=== PATIENT | male | born 1975 | race Caucasian/White ===

== ENCOUNTER 2022-06-27 15:31 | Emergency (ER) | payer MEDICAID, SELFPAY ==
[2022-06-27 15:49] VITALS: BP 138/85; PULSE 95; RESP 20; TEMP 36.8; O2SAT 97
--- NOTE | 2022-06-27 16:48 | ED.GENADUL_ITS ---
Discharge Plan Disposition Patient Disposition: HOME Condition: Improving Discharge Details Clinical Impression: Bipolar disorder Primary Care Provider: Laura Aguilera ED Provider: Heri Mckeon Home Meds and New Rx's Prescriptions: Continued trazodone 50 mg Tablet 50 mg PO DAILY divalproex 250 mg Tablet Extended Release 24 Hr 500 mg PO HS Discharge Instructions Additional Instructions: You were evaluated by the on-call mental health crisis team. They will call you on Thursday for further outpatient care. Return to the ER for any acute concerns. Continue your routine medications. Continue your positive efforts at self-care including avoiding alcohol. Medical Decision Making This is a 46-year-old male who states she has had a history of bipolar disorder since his early 20s. He used to be on lithium currently taking Depakote and trazodone at night. He states over the past few weeks has had increased baltazar with poor sleep and flight of ideas. He feels this peaked last Thursday when he spent 2 days home alone and did feel depressed, reaching out to family members. He is here tonight with his sister, stating he is feeling improved but feeling the need for reconnecting with therapy as he had good success prior to COVID with a therapist. He is not currently having thoughts of harming himself or others. Medical screening examination performed patient medically stable for further evaluation by mental health dry house worker. Following interview, patient has established plan of outpatient care and safety. He will be contacted on Thursday for a follow-up appointment. He is stable and improved. HPI General Mode of arrival: ambulatory . Date/Time Provider Initiated Documentation: 06/27/22 16:05 . Limitations to Documentation: no limitations . Information obtained by: patient . History of Present Illness 46 year old M presents to the emergency department with the chief complaint of Manic episode, described as mild and similar to prior episodes, Patient started experiencing this day(s) and it has been other (Improved). No relieving factors improve symptom(s), Patient notes no other symptoms.. Patient did receive the following treatments prior to arrival, none Related Data Home Medications Medication Instructions Recorded Confirmed divalproex 250 mg tablet,extended 500 mg PO HS 06/27/22 06/27/22 release 24 hr trazodone 50 mg tablet 50 mg PO DAILY 06/27/22 06/27/22 Allergies Allergy/AdvReac Type Severity Reaction Status Date / Time No Known Allergies Allergy Unverified 06/27/22 15:55 General Stated Complaint: PsychEval JOSE: 2 Review of Systems Narrative: No recent illness PFSH All Active Problems (Updated 06/27/22 @ 17:52 by Heri Mckeon MD) Bipolar disorder (Acute) Social History Smoking/Tobacco Use Status: Never Smoking risk assessment performed?: Yes Alcohol Intake: current Alcohol Intake frequency: a few times a month Drug use: Never Substance use type: does not use Do you feel safe at home: Yes Do you feel safe in your relationship?: Yes Exam Narrative Exam Narrative: GEN: awake, alert, oriented 3. Pleasant, well groomed, interactive. HEAD: Normocephalic, atraumatic ENT: Mucous membranes moist, oropharynx unremarkable, External ear exam unremarkable EYES: PERRL, EOMI NECK: Full ROM, no ANTONIA, no menigismus CHEST/RESP: Nontender, clear to auscultation bilateral, no wheeze/rhonchi/rales CARDIOVASCULAR: RRR, no murmur, rub hannah. 2+ Rad pulse bilateral ABDOMEN: Soft, nontender, no mass. +Bowel sounds EXT: Full ROM, no edema, no rash Neuro: Grossly normal neurologic exam, conversant, interactive. Psych: Speech fluent, thoughts congruent, affect normal Course Vital Signs Vital signs: Vital Signs Temperature 36.8 C 06/27/22 15:49 Pulse 95 H 06/27/22 15:49 Respiratory Rate 20 06/27/22 15:49 Blood Pressure 138/85 06/27/22 15:49 Pulse Oximetry 97 06/27/22 15:49 Temperature 36.8 C 06/27/22 15:49 Temperature Source Temporal Artery Scan 06/27/22 15:49 Pulse 95 H 06/27/22 15:49 Respiratory Rate 20 06/27/22 15:49 Respiratory Effort Non-Labored 06/27/22 15:57 Blood Pressure 138/85 06/27/22 15:49 Blood Pressure Position Sitting 06/27/22 15:49 Pulse Oximetry 97 06/27/22 15:49 Oxygen Delivery Method Room Air 06/27/22 15:49 Oxygen Flow Rate 0 06/27/22 15:49 Pain Level 0 06/27/22 15:49
[2022-06-27 18:10] VITALS: BP 130/80; PULSE 88; RESP 14; O2SAT 98
== END 2022-06-27 18:09 | disposition home or self-care (01) ==
PROVIDERS: Emergency Provider Emergency Medicine; PCP Nurse Practitioner Family
DX: F31.9 Bipolar disorder, unspecified (principal)
CPT/HCPCS: 99282

== ENCOUNTER 2023-04-27 14:37 | Emergency (ER) | payer MEDICAID, SELFPAY ==
[2023-04-27 14:44] VITALS: PULSE 164; RESP 16; TEMP 37.6; O2SAT 95
--- NOTE | 2023-04-27 15:06 | ED.GENADUL_ITS ---
Discharge Plan Discharge Details Chief Complaint: ETOHWithdr Clinical Impression: Alcohol intoxication, Aggressive behavior Primary Care Provider: None,None ED Provider: Geovani Harris Home Meds and New Rx's Prescriptions: No Action trazodone 50 mg Tablet 50 mg PO DAILY divalproex 250 mg Tablet Extended Release 24 Hr 500 mg PO TID cyclobenzaprine 10 mg Tablet 10 mg PO TID PRN quetiapine 200 mg Tablet 200 mg PO QHS Medical Decision Making 47 yo male with hx of bipolar and alcohol abuse comes in with his sister with alcohol intoxicated. Reportedly has been drinking whiskey most of the day. Patient arrives alert and screams when I enter the room. When I ask why he is here he yells fuck you and intermittently makes comments such as just fucking kill me. He has no signs of trauma, is not cooperative on exam and makes threats of self harm. HE is a danger to self and others and feel he needs chemical restraint for his safety and safety of others. Nursing was able to place an IV so 5mg haldol, 2mg ativan and 50mg benadryl ordered and will obtain cbc, cmp, tox screen and reassess. pt now sleeping after being medicated, withdraws extremities to painful stimuli and will say go away intermittently, will continue to monitor. pt now sleeping and awakens to voice, no longer agitated and cooperative, still slurring words, will follow commands now no focal deficits, will recheck bmp given anion gap acidosis which I suspect is due to alcoholic ketoacidosis, HR now 110 in sinus on the tele monitor. pt stable, sleeping in no distress awakens to voice but still slurring words, will not be able to be screened until the morning. Will be signed out to onco alexis provider pending sobriety and eval when sober. Differential Diagnosis Differential Diagnosis: alcohol intoxication, bipolar Lab Data Lab results reviewed: Yes I reviewed the patient's lab results. HPI General Mode of arrival: ambulatory . Date/Time Provider Initiated Documentation: 04/27/23 14:51 . Limitations to Documentation: other (intoxicated) . Information obtained by: patient and family . History of Present Illness 47 year old M presents to the emergency department with the chief complaint of alcohol intoxication, Patient started experiencing this unknown and it has been constant. No relieving factors improve symptom(s), No exacerbating factors reported . Patient did receive the following treatments prior to arrival, none Related Data Home Medications Medication Instructions Recorded Confirmed divalproex 250 mg tablet,extended 500 mg PO TID 06/27/22 04/27/23 release 24 hr trazodone 50 mg tablet 50 mg PO DAILY 06/27/22 04/27/23 cyclobenzaprine 10 mg tablet 10 mg PO TID PRN 04/27/23 04/27/23 quetiapine 200 mg tablet 200 mg PO QHS 04/27/23 04/27/23 Allergies Allergy/AdvReac Type Severity Reaction Status Date / Time No Known Allergies Allergy Unverified 06/27/22 15:55 General Stated Complaint: ETOHWithdr JOSE: 2 Review of Systems Unobtainable due to mental status (agitated/non cooperative) PFSH All Active Problems (Updated 04/27/23 @ 20:46 by Geovani Harris MD) Alcohol intoxication (Acute) Aggressive behavior (Acute) Social History Smoking/Tobacco Use Status: Never Smoking risk assessment performed?: Yes Alcohol Intake: current Alcohol Intake frequency: a few times a month Drug use: Never Substance use type: does not use Do you feel safe at home: Yes Do you feel safe in your relationship?: Yes Exam Const Orientation: alert HENGA Head: normal to inspection Ears: external ears normal General nose exam: external nose normal Mouth: moist mucous membranes Eyes General: appearance normal, both eyes and all related structures Neck Neck: normal visual inspection Resp Effort & Inspection: normal respiratory effort and able to speak in complete sentences Skin General skin exam: no rashes or lesions noted Neuro General: patient alert Extrem General: normal to inspection Psych Appearance: disheveled Attitude: belligerent Course Vital Signs Vital signs: Vital Signs Temperature 37.6 C H 04/27/23 14:44 Pulse 164 H 04/27/23 14:44 Respiratory Rate 16 04/27/23 14:44 Pulse Oximetry 95 04/27/23 14:44 Temperature 37.6 C H 04/27/23 14:44 Temperature Source Temporal Artery Scan 04/27/23 14:44 Pulse 164 H 04/27/23 14:44 Respiratory Rate 16 04/27/23 14:44 Blood Pressure Position Sitting 04/27/23 14:44 Pulse Oximetry 95 04/27/23 14:44 Oxygen Delivery Method Room Air 04/27/23 14:44 Oxygen Flow Rate 0 04/27/23 14:44 Pain Level 0 04/27/23 14:44
[2023-04-27 15:21] LABS: Abs Immature Grans 0.05 10^3/uL (0.0-0.06); Absolute Eosinophil Count 0.13 10^3/uL (0.0-0.7); Absolute Lymphocyte Count 5.95 10^3/uL (1.2-3.4); Basophils % 0.9; Eosinophils % 1.1; HCT 52.2 % (40.0-50.0); HGB 18.4 g/dL (13.5-17.5); Immature Grans % 0.4; Lymphocytes % 51.3; MCH 32.3 pg (27.0-33.0); MCHC 35.2 % (32.0-36.0); MCV 92 fL (80-95); MPV 10.1 fL (8.0-11.0); Monocytes % 4.7; Neutrophils % 41.6; Platelet Count 389 10^3/uL (130-400); RBC 5.69 10^6/uL (4.36-5.78); RDW 13.2 % (11.8-14.1); RDW-SD 44.7 fL; WBC 11.59 10^3/uL (4.4-10.8)
[2023-04-27 15:24] LABS: Absolute Monocyte Count 0.54 10^3/uL (0.1-0.8); Absolute Neutrophil Count 4.82 10^3/uL (1.2-6.7)
[2023-04-27] MEDS: diphenhydrAMINE 50 MG/ML VIAL IVP (15:29)
[2023-04-27] MEDS: Haloperidol 5 MG/ML VIAL IM/IV (15:29)
[2023-04-27] MEDS: LORazepam 2 MG/ML VIAL IVP (15:29)
[2023-04-27] MEDS: Normal Saline 1,000 ML 1000 ML IV ×2 (15:29→16:56)
[2023-04-27 15:35] LABS: INR 0.9 (0.9-1.1); PTT Activated 25.8 sec (21.5-31.9); Prothrombin Time 9.5 sec (9.3-11.0)
[2023-04-27 15:42] LABS: VALPROIC ACID 7.3 ug/mL
[2023-04-27 15:46] LABS: Diff Comment Diff Reviewed; RBC Morphology Normal
[2023-04-27 15:51] LABS: ALT 25 U/L (16-63); AST 19 U/L (15-37); Albumin 4.1 g/dL (3.4-5.0); Alkaline Phosphatase 104 U/L (46-116); Anion Gap 16.8 mmol/L (3-11); BUN 20 mg/dL (7-18); Bilirubin, Total 0.3 mg/dL (0.2-1.0); CO2 22.2 mmol/L (21.0-32.0); Calcium 8.8 mg/dL (8.5-10.1); Chloride 107 mmol/L (98-107); ETHANOL BLOOD 436.2 mg/dL (<10); Estimated GFR 92.26 (mL/min/1.73m2); Glucose 129 mg/dL (74-106); Magnesium 2.1 mg/dL (1.8-2.4); Potassium 4.1 mmol/L (3.5-5.1); Sodium 146 mmol/L (136-145); TSH (W/Ref FT4) 1.56 uIU/mL (0.36-3.74); Total Protein 8.9 g/dL (6.4-8.2)
[2023-04-27 15:55] LABS: Acetaminophen < 2 ug/mL (10-30); Salicylate 2.8 mg/dL (<2.8)
[2023-04-27 18:20] LABS: Anion Gap 11.2 mmol/L (3-11); BUN 19 mg/dL (7-18); CO2 26.8 mmol/L (21.0-32.0); Calcium 7.4 mg/dL (8.5-10.1); Chloride 110 mmol/L (98-107); Estimated GFR 92.26 (mL/min/1.73m2); Glucose 90 mg/dL (74-106); Potassium 3.8 mmol/L (3.5-5.1); Sodium 148 mmol/L (136-145)
[2023-04-27 20:32] VITALS: BP 100/62; PULSE 112; RESP 14; O2SAT 93
[2023-04-28 02:40] LABS: Bilirubin Negative (Negative); Blood Negative (Negative); Clarity Sl Cloudy (Clear); Glucose Negative (Negative); Ketones 15 mg/dL (Negative); Leukocyte Esterase Negative (Negative); Nitrite Negative (Negative); Specific Gravity >= 1.030 (1.005-1.025); Urobilinogen 0.2 mg/dL (Up to 0.2); pH 5.5 (5-8)
[2023-04-28 02:49] LABS: Bacteria Rare HPF (Negative); Crystals Negative HPF (Negative); Epithelial Cells Rare HPF (Negative); Mucus Trace (Negative); RBC 0-2 HPF (0-2); WBC 0-2 HPF (0-5)
[2023-04-28 02:50] LABS: C & S Indicated? No; Casts 3-5 Hyaline LPF (Negative)
[2023-04-28 02:52] LABS: *AMPHETAMINES SCREEN URINE Negative (Negative); *BARBITURATES SCREEN URINE Negative (Negative); *BENZODIAZEPINES SCREEN URINE Negative (Negative); Cannabinoids THC Negative (Negative); Cocaine Screen,Urine Negative (Negative); METHADONE URINE SCREEN Negative (Negative); OPIATES URINE SCREEN Negative (Negative)
[2023-04-28 02:53] LABS: Tricyclic Antidepressants Positive (Negative)
--- NOTE | 2023-04-28 06:35 | ED.PROG_ITS ---
Date of service: 04/28/23 Time of Service: 06:35 Medical Decision Making Resting comfortably no acute distress alert oriented. Clinically sober. No evidence of sedation or withdrawal. Patient has no SI or HI. Feels safe going home. Will be given [facility] human services resources for substance abuse Sign Out Sign Out Data: Sign Out Comment: intoxicated and aggressive on arrival making statements of self harm, requiring chemical sedation, now calm but still intoxicated, alcohol level 436, likely won't be sober enough to be screened until the morning Last updated by Geovani Harris MD at 04/27/23 22:14 Discharge Plan Disposition Patient Disposition: Home Discharge Details Chief Complaint: ETOHWithdr Clinical Impression: Alcohol intoxication Primary Care Provider: None,None ED Provider: Germain Valdes Home Meds and New Rx's Prescriptions: No Action trazodone 50 mg Tablet 50 mg PO DAILY divalproex 250 mg Tablet Extended Release 24 Hr 500 mg PO TID cyclobenzaprine 10 mg Tablet 10 mg PO TID PRN quetiapine 200 mg Tablet 200 mg PO QHS Discharge Instructions Instructions: Alcohol Intoxication (ED)
[2023-04-28 07:11] VITALS: BP 134/80; PULSE 80; RESP 20; TEMP 36.8; O2SAT 97
== END 2023-04-28 07:02 | disposition home or self-care (01) ==
PROVIDERS: Emergency Medicine; Emergency Provider Emergency Medicine
DX: F10.929 Alcohol use, unspecified with intoxication, unspecified (principal); F31.9 Bipolar disorder, unspecified
CPT/HCPCS: 80048; 80053; 80307; 96361; 96372; 96374; 96375; 99284; 80164; 80320; 80329; 81003; 81015; 83735; 84443; 85025; 85610; 85730; J1200; J1630; J2060

== ENCOUNTER 2023-06-23 16:25 | Emergency (ER) | payer MEDICAID, SELFPAY ==
[2023-06-23 16:28] VITALS: BP 127/105; PULSE 140; RESP 20; TEMP 37.5; O2SAT 99
--- NOTE | 2023-06-23 16:41 | W.ED.GENAD ---
Discharge Plan Disposition Patient Disposition: Home Condition: Stable Discharge Details Clinical Impression: Alcohol intoxication, Manic behavior Primary Care Provider: Unknown,Unknown ED Provider: Vandana Maxwell Home Meds and New Rx's Prescriptions: Continued trazodone 50 mg Tablet 50 mg PO DAILY divalproex 250 mg Tablet Extended Release 24 Hr 500 mg PO TID cyclobenzaprine 10 mg Tablet 10 mg PO TID PRN quetiapine 200 mg Tablet 200 mg PO QHS Discharge Instructions Instructions: Bipolar Disorder (ED), Alcohol Intoxication (ED) Additional Instructions: Please follow-up as discussed in by [facility] [email or web address]. Please return to the ER for any thoughts of harming yourself or others. Please take your regularly prescribed medications as directed. Follow up with primary care provider in 3-5 days. Return to ED sooner if any worsening or concerns. Increase oral fluids. Stand Alone Forms: Work Release Referrals: [facility] [Outside] - 2 days (Call for help with Alcohol use) [facility] [Outside] - 1 day Medical Decision Making 47 year old male presents accompanied by his sister for psychiatric eval. patient has a history of bipolar and his sister reports that he has not slept for the last for 5 days he has not taken his normal medications today. He reported to the triage nurse that he wants to hurt some people. He does report drinking alcohol today. He appears very agitated upon arrival. Guarded avoids eye contact. Patient is tachycardic and hypertensive. Work-up ordered including IV normal saline and lorazepam. BC CMP Tylenol salicylate urine drug screen and alcohol level ordered. Mental health eval and sitter. Ethyl alcohol level 310, has been drinking water and has recieved one liter of NS. Has remained calm and cooperative throughout his stay. 2206:Repeat ETOH level ordered. 2235: Mental health paged. 2248: Freida from [facility] on Zoom for evaluation. 2308: Spoke with Melanie with [facility] she recommends a safety plan home tonight he will check in daily with phone calls discussed with his boss and his medication provider about changing his medications and make a decision to possibly go inpatient in the future. I agree with his plan as patient denies any suicidal ideation at this time. Staff will call patients family for a ride. Vital signs improved prior to discharge. Medical Records Medical records reviewed: Yes I reviewed the patient's medical records. Lab Data Lab results reviewed: Yes I reviewed the patient's lab results. Labs: Laboratory Tests Range/Units 06/23/23 06/23/23 06/23/23 16:50 16:50 16:50 WBC (4.4-10.8) 10^3/uL 9.72 RBC (4.36-5.78) 10^6/uL 5.41 Hgb (13.5-17.5) g/dL 17.2 Hct (40.0-50.0) % 50.2 H MCV (80-95) fL 93 MCH (27.0-33.0) pg 31.8 MCHC (32.0-36.0) % 34.3 RDW (11.8-14.1) % 14.7 H Plt Count (130-400) 10^3/uL 353 MPV (8.0-11.0) fL 10.2 Immature Gran % 0.6 Neutrophils % 52.9 Lymphocytes % 40.0 Monocytes % 5.1 Eosinophils % 0.6 Basophils % 0.8 Nucleated RBC % (0.0-0.3) % 0.0 Absolute Neutrophils (1.2-6.7) 10^3/uL 5.13 Absolute Lymphocytes (1.2-3.4) 10^3/uL 3.89 H Absolute Monocytes (0.1-0.8) 10^3/uL 0.50 Absolute Eosinophils (0.0-0.7) 10^3/uL 0.06 Absolute Basophils (0.0-0.2) 10^3/uL 0.08 Sodium (136-145) mmol/L 143 Potassium (3.5-5.1) mmol/L 3.7 Chloride (98-107) mmol/L 104 Carbon Dioxide (21.0-32.0) mmol/L 18.6 L Anion Gap (3-11) mmol/L 20.4 H BUN (7-18) mg/dL 17 Creatinine (0.70-1.30) mg/dL 0.9 Est GFR (CKD-EPI 2020) (mL/min/1.73m2) 104.70 Glucose (74-106) mg/dL 101 Calcium (8.5-10.1) mg/dL 9.0 Total Bilirubin (0.2-1.0) mg/dL 0.3 AST (15-37) U/L 19 ALT (16-63) U/L 27 Alkaline Phosphatase (46-116) U/L 95 Total Protein (6.4-8.2) g/dL 8.9 H Albumin (3.4-5.0) g/dL 4.0 TSH (0.36-3.74) uIU/mL 1.78 Urine Color (Yellow) Urine Clarity (Clear) Urine pH (5-8) Ur Specific [place] (1.005-1.025) Urine Protein (Negative) mg/dL Urine Ketones (Negative) mg/dL Urine Blood (Negative) Urine Nitrite (Negative) Urine Bilirubin (Negative) Urine Urobilinogen (Up to 0.2) mg/dL Ur Leukocyte Esterase (Negative) Urine RBC (0-2) HPF Urine WBC (0-5) HPF Ur Epithelial Cells (Negative) HPF Urine Crystals (Negative) HPF Urine Bacteria (Negative) HPF Urine Casts (Negative) LPF Urine Mucus (Negative) Ur Culture Indicated? Urine Glucose (Negative) mg/dL Salicylates (<2.8) mg/dL < 2.8 Urine Opiates Screen (Negative) Urine Methadone Screen (Negative) Acetaminophen (10-30) ug/mL < 2 Ur Barbiturates Screen (Negative) Ur Tricyclics Screen (Negative) Ur Amphetamines Screen (Negative) U Benzodiazepines Scrn (Negative) Urine Cocaine Screen (Negative) Ur THC Screen (Negative) Ethyl Alcohol (<10) mg/dL 310.3 H Range/Units 06/23/23 06/23/23 20:40 20:40 WBC (4.4-10.8) 10^3/uL RBC (4.36-5.78) 10^6/uL Hgb (13.5-17.5) g/dL Hct (40.0-50.0) % MCV (80-95) fL MCH (27.0-33.0) pg MCHC (32.0-36.0) % RDW (11.8-14.1) % Plt Count (130-400) 10^3/uL MPV (8.0-11.0) fL Immature Gran % Neutrophils % Lymphocytes % Monocytes % Eosinophils % Basophils % Nucleated RBC % (0.0-0.3) % Absolute Neutrophils (1.2-6.7) 10^3/uL Absolute Lymphocytes (1.2-3.4) 10^3/uL Absolute Monocytes (0.1-0.8) 10^3/uL Absolute Eosinophils (0.0-0.7) 10^3/uL Absolute Basophils (0.0-0.2) 10^3/uL Sodium (136-145) mmol/L Potassium (3.5-5.1) mmol/L Chloride (98-107) mmol/L Carbon Dioxide (21.0-32.0) mmol/L Anion Gap (3-11) mmol/L BUN (7-18) mg/dL Creatinine (0.70-1.30) mg/dL Est GFR (CKD-EPI 2020) (mL/min/1.73m2) Glucose (74-106) mg/dL Calcium (8.5-10.1) mg/dL Total Bilirubin (0.2-1.0) mg/dL AST (15-37) U/L ALT (16-63) U/L Alkaline Phosphatase (46-116) U/L Total Protein (6.4-8.2) g/dL Albumin (3.4-5.0) g/dL TSH (0.36-3.74) uIU/mL Urine Color (Yellow) Yellow Urine Clarity (Clear) Clear Urine pH (5-8) 5.5 Ur Specific [place] (1.005-1.025) >= 1.030 H Urine Protein (Negative) mg/dL Trace H Urine Ketones (Negative) mg/dL 15 H Urine Blood (Negative) Trace-intact H Urine Nitrite (Negative) Negative Urine Bilirubin (Negative) Negative Urine Urobilinogen (Up to 0.2) mg/dL 0.2 Ur Leukocyte Esterase (Negative) Negative Urine RBC (0-2) HPF 0-2 Urine WBC (0-5) HPF 0-2 Ur Epithelial Cells (Negative) HPF Rare Urine Crystals (Negative) HPF Negative Urine Bacteria (Negative) HPF Negative Urine Casts (Negative) LPF 3-5 Hyaline Urine Mucus (Negative) Trace Ur Culture Indicated? No Urine Glucose (Negative) mg/dL Negative Salicylates (<2.8) mg/dL Urine Opiates Screen (Negative) Negative Urine Methadone Screen (Negative) Negative Acetaminophen (10-30) ug/mL Ur Barbiturates Screen (Negative) Negative Ur Tricyclics Screen (Negative) Positive A Ur Amphetamines Screen (Negative) Negative U Benzodiazepines Scrn (Negative) Negative Urine Cocaine Screen (Negative) Negative Ur THC Screen (Negative) Negative Ethyl Alcohol (<10) mg/dL HPI General Mode of arrival: ambulatory. Date/Time Provider Initiated Documentation: 06/23/23 16:33. Limitations to Documentation: altered mental status. Information obtained by: patient, family, RN notes reviewed and old records reviewed. HPI Narrative: 47 year old male presents accompanied by his sister for psychiatric eval. patient has a history of bipolar and his sister reports that he has not slept for the last for 5 days he has not taken his normal medications today. He reported to the triage nurse that he wants to hurt some people. He does report drinking alcohol today. He appears very agitated upon arrival. Guarded avoids eye contact. Related Data Home Medications Medication Instructions Recorded Confirmed divalproex 250 mg tablet,extended 500 mg PO TID 06/27/22 06/23/23 release 24 hr trazodone 50 mg tablet 50 mg PO DAILY 06/27/22 06/23/23 cyclobenzaprine 10 mg tablet 10 mg PO TID PRN 04/27/23 06/23/23 quetiapine 200 mg tablet 200 mg PO QHS 04/27/23 06/23/23 Allergies Allergy/AdvReac Type Severity Reaction Status Date / Time No Known Allergies Allergy Unverified 06/27/22 15:55 General Stated Complaint: PsychEval JOSE: 2 Review of Systems All systems reviewed & are unremarkable except as noted in HPI and below Psychiatric Psychiatric: Reports as per HPI, Reports depression, Reports mood swings and Reports homicidal ideation PFSH All Active Problems (Updated 06/23/23 @ 23:12 by Vandana Maxwell NP) Alcohol intoxication (Acute) Manic behavior (Acute) Social History Smoking/Tobacco Use Status: Never Smoking risk assessment performed?: Yes Alcohol Intake: current Alcohol Intake frequency: a few times a month Drug use: Never Substance use type: does not use Housing: house Do you feel safe at home: Yes Do you feel safe in your relationship?: Yes Course Vital Signs Vital signs: Vital Signs Temperature 37.5 C 06/23/23 16:28 Pulse 140 H 06/23/23 16:28 Respiratory Rate 20 06/23/23 16:28 Blood Pressure 127/105 H 06/23/23 16:28 Pulse Oximetry 99 06/23/23 16:28 Temperature 37.5 C 06/23/23 16:28 Temperature Source Oral 06/23/23 16:28 Pulse 140 H 06/23/23 16:28 Respiratory Rate 20 06/23/23 16:28 Blood Pressure 127/105 H 06/23/23 16:28 Blood Pressure Position Supine 06/23/23 16:28 Pulse Oximetry 99 06/23/23 16:28 Oxygen Delivery Method Room Air 06/23/23 16:28 Oxygen Flow Rate 0 06/23/23 16:28 Pain Level 0 06/23/23 16:28
[2023-06-23] MEDS: LORazepam 2 MG/ML VIAL IVP (16:54)
[2023-06-23] MEDS: Normal Saline 1,000 ML 1000 ML IV (16:54)
[2023-06-23 17:04] LABS: Abs Immature Grans 0.06 10^3/uL (0.0-0.06); Absolute Basophil Count 0.08 10^3/uL (0.0-0.2); Absolute Eosinophil Count 0.06 10^3/uL (0.0-0.7); Absolute Lymphocyte Count 3.89 10^3/uL (1.2-3.4); Absolute Neutrophil Count 5.13 10^3/uL (1.2-6.7); Basophils % 0.8; Eosinophils % 0.6; HCT 50.2 % (40.0-50.0); HGB 17.2 g/dL (13.5-17.5); Immature Grans % 0.6; MCH 31.8 pg (27.0-33.0); MCHC 34.3 % (32.0-36.0); MCV 93 fL (80-95); MPV 10.2 fL (8.0-11.0); Monocytes % 5.1; Neutrophils % 52.9; Platelet Count 353 10^3/uL (130-400); RBC 5.41 10^6/uL (4.36-5.78); RDW 14.7 % (11.8-14.1); RDW-SD 50.7 fL; WBC 9.72 10^3/uL (4.4-10.8)
[2023-06-23 17:23] LABS: ALT 27 U/L (16-63); AST 19 U/L (15-37); Alkaline Phosphatase 95 U/L (46-116); Anion Gap 20.4 mmol/L (3-11); BUN 17 mg/dL (7-18); Bilirubin, Total 0.3 mg/dL (0.2-1.0); CO2 18.6 mmol/L (21.0-32.0); CREATININE 0.9 mg/dL (0.70-1.30); Chloride 104 mmol/L (98-107); Glucose 101 mg/dL (74-106); Potassium 3.7 mmol/L (3.5-5.1); Sodium 143 mmol/L (136-145); TSH (W/Ref FT4) 1.78 uIU/mL (0.36-3.74); Total Protein 8.9 g/dL (6.4-8.2)
[2023-06-23 17:26] LABS: ETHANOL BLOOD 310.3 mg/dL (<10)
[2023-06-23 17:35] LABS: Salicylate < 2.8 mg/dL (<2.8)
[2023-06-23 17:36] LABS: Acetaminophen < 2 ug/mL (10-30)
[2023-06-23 20:24] VITALS: BP 129/95; PULSE 129; TEMP 37.2; O2SAT 90
[2023-06-23 21:03] LABS: Bilirubin Negative (Negative); Blood Trace-intact (Negative); Clarity Clear (Clear); Glucose Negative (Negative); Ketones 15 mg/dL (Negative); Leukocyte Esterase Negative (Negative); Nitrite Negative (Negative); Specific Gravity >= 1.030 (1.005-1.025); Urobilinogen 0.2 mg/dL (Up to 0.2); pH 5.5 (5-8)
[2023-06-23 21:13] LABS: *AMPHETAMINES SCREEN URINE Negative (Negative); *BARBITURATES SCREEN URINE Negative (Negative); *BENZODIAZEPINES SCREEN URINE Negative (Negative); Bacteria Negative HPF (Negative); Cannabinoids THC Negative (Negative); Cocaine Screen,Urine Negative (Negative); Crystals Negative HPF (Negative); Epithelial Cells Rare HPF (Negative); METHADONE URINE SCREEN Negative (Negative); OPIATES URINE SCREEN Negative (Negative); RBC 0-2 HPF (0-2); WBC 0-2 HPF (0-5)
[2023-06-23 21:14] LABS: C & S Indicated? No; Casts 3-5 Hyaline LPF (Negative); Mucus Trace (Negative)
[2023-06-23 21:26] LABS: Tricyclic Antidepressants Positive (Negative)
[2023-06-23 22:25] LABS: ETHANOL BLOOD 124.4 mg/dL (<10)
[2023-06-23 23:20] VITALS: BP 122/97; PULSE 109; TEMP 37.2; O2SAT 93
[2023-06-24 03:44] VITALS: BP 122/97; PULSE 109; RESP 20; TEMP 37.2; O2SAT 93
== END 2023-06-24 02:08 | disposition home or self-care (01) ==
PROVIDERS: Emergency Provider Registered Nurse Emergency
DX: F30.10 Manic episode without psychotic symptoms, unspecified (principal); R45.1 Restlessness and agitation; F10.120 Alcohol abuse with intoxication, uncomplicated; Y90.8 Blood alcohol level of 240 mg/100 ml or more
CPT/HCPCS: 80053; 80307; 96361; 96374; 99285; 80320; 80329; 81003; 81015; 84443; 85025; 99284; J2060

== ENCOUNTER 2023-12-16 13:49 | Outpatient (CLI) | payer MEDICAID, SELFPAY ==
--- NOTE | 2023-12-16 06:00 | DI.RAD_ITS ---
Exam(s) XR PAIN CLINIC LUMBAR SP 2V EXAM: XR PAIN CLINIC LUMBAR SP 2V CLINICAL HISTORY: Dx: Lumbar Spondylosis TECHNIQUE: 2D and realtime digital imaging was performed. CONTRAST MATERIAL: Refer to procedure report. COMPARISON: No exams were available for comparison FINDINGS: Fluoroscopy was provided for Dr. Zarate during the performance of a lumbar medial branch block. Sheri boyer refer to the procedure report for complete details. Ka,r=27.8 mGy IMPRESSION: RADIATION DOSE DELIVERED: 0.0 0.0 0
[2023-12-16 14:02] VITALS: BP 143/93; PULSE 88; RESP 20; TEMP 36.7; O2SAT 95
--- NOTE | 2023-12-16 14:39 | PDOC.PAIN ---
Date of service: 12/16/23 Time of Service: 14:39 Pain Managment Procedure Note Procedure Note Procedure Note: PROCEDURE NOTE Bilateral Lumbar Medial Branch Blocks Date of Service: December 16, 2023 Patient: Christopher Salazar Provider: Minna Zarate DO, MPH Celine Salazar has been referred to the [facility] for lumbar medial branch blocks. Pre-operative diagnosis: Lumbar Spondylosis without Myelopathy Post-operative diagnosis: Same Pre-procedure pain: VAS= 5/10 COMMENTS: I previously evaluated him in the office. His symptoms are the same as they were when I saw him in the office. Mary was interviewed and the medical records were reviewed. There were no medical, pharmacologic, radiographic or other structural contraindications to attempting fluoroscopically guided local anesthetic lumbar medial branch blocks. Risks and potential side effects were discussed. I also discussed the potential benefit(s) of the procedure with , and voiced concerns were addressed. After was completely informed about the procedure, the printed consent form was signed. A standard time-out procedure was performed. was placed in the prone position on the fluoroscopy table. Automated blood pressure cuff and pulse oximeter were applied. The skin entry points for approaching the anatomic target points of the segmental medial branches of bilateral L3,L4,L5 were identified with fluoroscopy and marked. The skin at the target site area was thoroughly prepared with Chlorhexadine. The skin was then draped. Next, a 25 gauge 3.5 spinal needle was placed under fluoroscopic guidance down on to the target point (the articular pillar) for each respective segmental medial branch. Position was confirmed in A/P and lateral views. Aspiration revealed no blood or clear fluid. Next, 0.25ml of omnipaque 240 was injected at each level. No contrast following a vascular or neural pattern was visualized under continuous fluoroscopy. Next, 0.25 ml of preservative-free 0.5% bupivicaine was injected at each level. There was no unusual discomfort expressed by . The needles were withdrawn without difficulty. (49 mls of Omnipaque was wasted) was observed and was without hemodynamic, neurologic, or allergic reactions.? Fluoroscopic images were digitally archived. Provacative testing using the Modified Christy's facet loading test- Left side Right Side Directly before the block VAS (0-10) = 6/10 VAS (0-10) = 6/10 Five minutes after the block VAS (0-10) = 1/10 VAS (0-10) = 1/10 Percentage relief obtained with this diagnostic block 85% 85% Any improved physical functioning directly after the blocks? Able to move without much pain. Follow up plans and appointments were discussed with . was instructed to keep careful note of how the usual pain was modified by these injections. Specifically, to keep a pain diary for the next 4 hours using a numeric pain scale of 0-10 and report these results. Post procedure instruction was given as documented in the nursing documentation and having met discharge criteria, the patient was [facility]. Based on the medial branches blocked today, if they patient has adequate relief and we are able to proceed to radiofrequency ablation, the treatment should result in the denervation of the bilateral L4-L5 and L5-S1 facet joints. We would expect to denervate a total of 4 facets during the radiofrequency ablation. COMMENTS: No apparent complications. Post-procedure pain: VAS= 1/10 will call back with 0-4 hour post-procedure pain scores. I personally performed the entire procedure. MINNA ZARATE DO, MPH ABPM&R-subspecialty board certification in Pain Medicine [facility]
[2023-12-16 14:42] VITALS: BP 139/100; PULSE 85; RESP 13; O2SAT 96
[2023-12-16] MEDS: Nerve Block Tray 1 EACH MC (14:43)
[2023-12-16] MEDS: Omnipaque 240 MG/ML 50 ML BTL IJ (14:43)
[2023-12-16] MEDS: Bupivacaine 0.5% Pres-Free 10 ML VIAL IJ (14:44)
== END 2023-12-16 13:50 | disposition home or self-care (01) ==
LOC: PC 13:55
PROVIDERS: Visit Provider Preventive Medicine Occupational Medicine
DX: M47.816 Spondylosis without myelopathy or radiculopathy, lumbar region (principal)
CPT/HCPCS: 00123; 64493; 64494; 72100; J0665; Q9967

== ENCOUNTER 2024-02-17 10:39 | Outpatient (CLI) | payer MEDICAID, SELFPAY ==
[2024-02-17 10:44] VITALS: BP 133/85; PULSE 82; RESP 20; TEMP 36.7; O2SAT 93
[2024-02-17] MEDS: Omnipaque 240 MG/ML 50 ML BTL IJ (11:06)
[2024-02-17] MEDS: Nerve Block Tray 1 EACH MC (11:06)
[2024-02-17] MEDS: Bupivacaine 0.5% Pres-Free 10 ML VIAL IJ (11:06)
--- NOTE | 2024-02-17 11:18 | DI.RAD_ITS ---
Exam(s) XR PAIN CLINIC LUMBAR SP 2V EXAM: XR PAIN CLINIC LUMBAR SP 2V CLINICAL HISTORY: Dx: Lumbar Spondylosis TECHNIQUE: 2D and realtime digital imaging was performed. CONTRAST MATERIAL: Refer to procedure report. COMPARISON: No exams were available for comparison FINDINGS: Fluoroscopy was provided for Dr. Zarate during the performance of a lumbar medial branch block. Sheri boyer refer to the procedure report for complete details. Ka,r=19.9 mGy IMPRESSION: RADIATION DOSE DELIVERED: 0.0 0.0 0
[2024-02-17 11:25] VITALS: BP 129/95; PULSE 82; RESP 12; O2SAT 91
--- NOTE | 2024-02-17 11:46 | PDOC.PAIN ---
Date of service: 02/17/24 Time of Service: 11:46 Pain Managment Procedure Note Procedure Note Procedure Note: PROCEDURE NOTE Bilateral Lumbar Medial Branch Blocks Date of Service: February 17, 2024 Patient: Christopher Salazar Provider: Minna Zarate DO, MPH Celine Salazar has been [facility] for lumbar medial branch blocks. Pre-operative diagnosis: Lumbar Spondylosis without Myelopathy Post-operative diagnosis: Same Pre-procedure pain: VAS= 5/10 COMMENTS: He did very well with the LMBB #1 on 12/16/23. His pain has returned. Mary was interviewed and the medical records were reviewed. There were no medical, pharmacologic, radiographic or other structural contraindications to attempting fluoroscopically guided local anesthetic lumbar medial branch blocks. Risks and potential side effects were discussed. I also discussed the potential benefit(s) of the procedure with , and voiced concerns were addressed. After was completely informed about the procedure, the printed consent form was signed. A standard time-out procedure was performed. was placed in the prone position on the fluoroscopy table. Automated blood pressure cuff and pulse oximeter were applied. The skin entry points for approaching the anatomic target points of the segmental medial branches of bilateral L3,L4,L5 were identified with fluoroscopy and marked. The skin at the target site area was thoroughly prepared with Chlorhexadine. The skin was then draped. Next, a 25 gauge 3.5 spinal needle was placed under fluoroscopic guidance down on to the target point (the articular pillar) for each respective segmental medial branch. Position was confirmed in A/P and lateral views. Aspiration revealed no blood or clear fluid. Next, 0.25ml of omnipaque 240 was injected at each level. No contrast following a vascular or neural pattern was visualized under continuous fluoroscopy. Next, 0.25 ml of preservative-free 0.5% bupivicaine was injected at each level. There was no unusual discomfort expressed by . The needles were withdrawn without difficulty. (49 mls of Omnipaque was wasted) was observed and was without hemodynamic, neurologic, or allergic reactions.? Fluoroscopic images were digitally archived. Provacative testing using the Modified Christy's facet loading test- Left side Right Side Directly before the block VAS (0-10) = 5/10 VAS (0-10) = 5/10 Five minutes after the block VAS (0-10) = 2/10 VAS (0-10) = 2/10 Percentage relief obtained with this diagnostic block 80% 80% Any improved physical functioning directly after the blocks? Able to move around with ease. Follow up plans and appointments were discussed with . was instructed to keep careful note of how the usual pain was modified by these injections. Specifically, to keep a pain diary for the next 4 hours using a numeric pain scale of 0-10 and report these results. Post procedure instruction was given as documented in the nursing documentation and having met discharge criteria, the patient was [facility] from the [facility]. Based on the medial branches blocked today, if they patient has adequate relief and we are able to proceed to radiofrequency ablation, the treatment should result in the denervation of the bilateral L4-L5 and L5-S1 facet joints. We would expect to denervate a total of 4 facets during the radiofrequency ablation. COMMENTS: No apparent complications. Post-procedure pain: VAS= 2/10 will call back with 0-4 hour post-procedure pain scores. I personally performed the entire procedure. MINNA ZARATE DO, MPH ABPM&R-subspecialty board certification in Pain Medicine [facility]
== END 2024-02-17 10:40 | disposition home or self-care (01) ==
LOC: PC 10:39
PROVIDERS: Visit Provider Preventive Medicine Occupational Medicine
DX: M47.816 Spondylosis without myelopathy or radiculopathy, lumbar region (principal)
CPT/HCPCS: 64493; 64494; 72100; J0665; Q9967

== ENCOUNTER 2024-03-02 07:32 | Outpatient (CLI) | payer MEDICAID, SELFPAY ==
[2024-03-02] VITALS (17 sets, daily range): BP systolic 89–130; BP diastolic 62–97; PULSE 52–98; RESP 11–24; TEMP 36.7; O2SAT 87–98
[2024-03-02] MEDS: fentaNYL 100 MCG/2 ML VIAL IVP ×2 (08:22→08:31)
[2024-03-02] MEDS: Midazolam 2 MG/2 ML VIAL IVP (08:22)
[2024-03-02] MEDS: Lactated Ringers 500 ML 80 ML IV (08:23)
[2024-03-02] MEDS: fentaNYL 100 MCG/2 ML VIAL 25 MCG IVP (08:37)
--- NOTE | 2024-03-02 09:06 | DI.RAD_ITS ---
Exam(s) XR PAIN CLINIC LUMBAR SP 2V EXAM: XR PAIN CLINIC LUMBAR SP 2V CLINICAL HISTORY: DX: Lumbar spondylosis. TECHNIQUE: Fluoroscopy was provided for the referring physician for guidance with performing pain cl inic injection procedure. COMPARISON: No exams were available for comparison FINDINGS: Please see procedure note for details. Fluoro time: 66.5 seconds RADIATION DOSE DELIVERED: Veronicar=26.9 mGy
--- NOTE | 2024-03-02 09:10 | PDOC.PAIN ---
Date of service: 03/02/24 Time of Service: 09:11 Pain Managment Procedure Note Procedure Note Procedure Note: PROCEDURE NOTE BILATERAL LUMBAR RADIOFREQUENCY ABLATION Date of Service: March 02, 2024 Patient:? Christopher Salazar? Provider:? Gary Zarate DO, MPH Christopher Salazar has been [facility] to [facility] Bilateral Lumbar Radiofrequency Ablation with the [employer] biostructuress Machine.? Pre Operative Diagnosis: Lumbosacral Spondylosis without Myelopathy Post Operative Diagnosis: Same Pre procedure pain; VAS= 8/10 Comments: He had good results with LMBB x 2. His pain has returned. PROCEDURE: Radiofrequency Ablation of medial branches - bilateral L3, L4, L5 and lateral branches of bilateral S1. ?was interviewed and the medical record was reviewed.? There were no medical, pharmacologic, radiographic or other structural contraindications to attempting fluoroscopically guided BILATERAL Lumbar Radiofrequency Ablation.?Risks and expected side effects as well as potential benefit of the procedure were reviewed with , and the patient's voiced concerns were addressed.? The printed consent form was signed.? Standard time-out procedure was performed. was brought into the fluoroscopy suite and positioned into the prone position on the fluoroscopy table and allowed to adjust to a position of comfort. A grounding pad was placed on the left abdomen. The sterile field was prepared using chlorhexidine preparation of the skin and sterile draping. Local anesthesia superficial and deep was provided by local infiltration of 2% lidocaine. A 17g 100 mm radiofrequency introducer needle was placed to the planned anatomic targets guided with intermittent fluoroscopy with a perpendicular approach to terminally place at the junction of the superior articular process and the transverse process of the bilateral L4, L5, the base of the sacral ala on the bilateral for the L5 medial branch nerve and the area between base of the sacral ala to the S1 foramen bilaterally. The stylets were removed and radiofrequency probes with a 4mm active tip were then inserted. Needle tip position of the probes was verified in the AP, oblique, and lateral views. At each site, the medial branch nerve was stimulated at 2 Hz to a maximum 1-2 volts determined to finalize safe needle and electrode placement. The patient was awake and responsive during this portion of the procedure. Each target was anesthetized with 1-2 mL of 2 % Lidocaine for anesthesia for lesioning and then each target was lesioned at 80 degrees Celsius for 2 minutes and 30 seconds. Tissue impedances were noted to be between 250 and 500 Ohms. I next injected 1/4 cc of Depomedrol (40 mg/cc) followed by 1 cc of 0.5% Bupivacaine. There was no unusual discomfort expressed by . The needles were withdrawn without difficulty and bandages placed over the needle placement sites, the patient was observed and was without hemodynamic, neurologic, or allergic reactions. Fluoroscopic images were digitally archived. POST PROCEDURE EVALUATION: IMPRESSION: 1. Summary of procedure. Medication given is documented in the MAR. 2. Follow up plan: to contact [facility] as needed.?This procedure may be repeated if the patient achieves at least 50% improvement in pain/function for at least 6 months. 3. Estimated Blood Loss: <5 mls 4. Fluoroscopy time: Documented in the EMR. Follow up plans and appointments were discussed with the [facility]. Post procedure instruction was given as documented in nursing documentation and having met discharge criteria, was discharged from the [facility]. COMMENTS: No apparent complications. Post-procedure pain: VAS= 0/10. I personally completed the entire procedure. GARY ZARATE DO, MPH ABPM&R - Subspecialty board certification in Pain Medicine [facility] [facility]
[2024-03-02] MEDS: Lidocaine 2% Multi-Dose 20 ML VIAL IJ (09:16)
[2024-03-02] MEDS: Nerve Block Tray 1 EACH MC (09:16)
[2024-03-02] MEDS: Bupivacaine 0.5% Pres-Free 10 ML VIAL IJ (09:17)
[2024-03-02] MEDS: methylPREDNISolone ACETATE 40 MG/ML VIAL IJ (09:17)
== END 2024-03-02 07:33 | disposition home or self-care (01) ==
LOC: PC 07:32
PROVIDERS: Visit Provider Preventive Medicine Occupational Medicine
DX: M47.817 Spondylosis without myelopathy or radiculopathy, lumbosacral region (principal)
CPT/HCPCS: 64635; 64636; 72100; J0665; J1010; J2003; J2250; J3010